=== PATIENT | male | born 1985 | race Caucasian/White ===

== ENCOUNTER 2016-12-27 12:51 | Emergency (ER) | payer OTHER ==
[~2016-12-27] VITALS: Ht 182.9 cm; Wt 132.2 kg
[2016-12-27 12:56] VITALS: Ht 182.9 cm; Wt 132.2 kg
[2016-12-27] MEDS ORDERED: MoRPHine SULFATE 4 MG/ML 1 ML CARP\\VIAL IV STA (13:07)
[2016-12-27] MEDS ORDERED: ONDANSETRON INJ 2 MG/ML 2 ML VIAL IV STA (13:07)
[2016-12-27 13:39] LABS: BASO % 0.2 %; BASO ABS # 0.01 K/uL (0-0.2); COMPLETE YES; EOS % 1.3 %; IG% 0.5 %; LYMPH % 23.8 %; LYMPH ABS # 1.46 K/uL (1.2-3.4); MEAN CELL VOLUME 90.2 fL (80-100); MEAN CORPUSCULAR HEMOGLOBIN 31.4 pg (25-34); MEAN CORPUSCULAR HGB CONC 34.8 g/dl (32-36); MEAN PLATELET VOLUME 10.6 fL (7.4-10.4); MONO % 11.7 %; NEUT % 62.5 %; PLATELET COUNT 182 K/uL (130-400); RED BLOOD COUNT 4.88 M/uL (4.7-6.1); WHITE BLOOD COUNT 6.13 K/uL (4.8-10.8)
[2016-12-27 14:07] LABS: ALT/SGPT 80 U/L (12-78); AST/SGOT 25 U/L (15-37); BLOOD UREA NITROGEN 12 mg/dl (7-18); CALCIUM 8.6 mg/dl (8.5-10.1); CARBON DIOXIDE 26 mmol/L (21-32); CHLORIDE 109 mmol/L (98-107); GLUCOSE 259 mg/dl (70-99); POTASSIUM 3.9 mmol/L (3.5-5.1); SODIUM 142 mmol/L (136-145)
[2016-12-27 14:09] LABS: ALKALINE PHOSPHATASE 81 U/L (45-117)
[2016-12-27 14:29] LABS: URINE APPEARANCE CLEAR (CLEAR); URINE BILIRUBIN NEG (NEG); URINE COLOR YELLOW; URINE NITRITE NEG (NEG); URINE PH 5.5 (4.5-7.5); URINE SPECIFIC GRAVITY 1.038 (1.000-1.030); UROBILINOGEN NEG (NEG)
[2016-12-27 14:39] LABS: MANUAL MICROSCOPIC REQUIRED? NO; REVIEW REQ? NO
--- NOTE | 2016-12-27 16:25 | DIAGNOSTIC IMAGING REPORT ---
ABDOMEN AND PELVIS CT WITH IV AND ORAL CONTRAST CT DOSE: 1560.09 mGy.cm HISTORY: Pain eval for spigelian hernia/obstruciton TECHNIQUE: Multiaxial CT images of the abdomen and pelvis were performed following the use of intravenous and oral contrast. COMPARISON STUDY: None. FINDINGS: Lung bases are clear. Fatty infiltration of liver. Spleen is unremarkable. Kidneys enhance uniformly. Pancreas is unremarkable. Bowel pattern overall is nonobstructive. Abdominal wall is intact. There is no evidence for hernia. There are no obstructive characteristics. IMPRESSION: Fatty infiltration of liver. Otherwise negative study. No evidence for obstruction or hernia. Electronically signed by: Clayton Ortega M.D. 12/27/2016 4:23 PM Dictated Date/Time: 12/27/2016 4:22 PM
[2016-12-27] MEDS ORDERED: OPTIRAY 320 IV PRN (16:30)
[2016-12-27 17:38] VITALS: BP 110/59; PULSE 81; TEMP 36.6; O2SAT 96
--- NOTE | 2016-12-27 18:28 | EMERGENCY ROOM VISIT NOTE ---
History Report prepared by Arlen: Janeth Rachel Under the Supervision of: Dr. Gen Willard M.D. First contact with patient: 12:58 Chief Complaint: ABDOMINAL PAIN Stated Complaint: UPPER LEFT SIDE ABDOMINAL PAIN Nursing Triage Summary: Pt reports LUQ pain that began 30 mins. "Feels like pop rocks. I get swelling in my abd. I have a pocket that is swollen and gets sore, but this is the first time it's been a constant pounding." Denies n/v/d. 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 The patient states that he was diagnosed with diastasis recti about 3 months ago; however, the symptoms that he is experiencing today are different and he has never had pain like this before. He reports sharp pain in his LUQ that "felt like a baby kicking me." He was just sitting in his car when his pain began. The patient states that the pain comes in spasms. He noticed that his LUQ appeared to be "puffed out." His pain is worsened with inspiration. The patient rates his pain as a 6/10 in severity. He had left sided back pain yesterday, but denies any current back pain. He has a personal history of kidney stones, but states that this does not feel like his previous stones. The patient denies fevers, nausea, vomiting, hematuria, and urinary symptoms. He denies any previous abdominal surgeries. He has had intermittent diarrhea and constipation and thinks he might have IBS. He notes intermittent melena and hematochezia for years. He has seen his PCP for this but has never had a colonoscopy before. He was told it could be hemorrhoids. 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 A total of 10 systems reviewed and were otherwise negative. Past Medical & Surgical Medical Problems: (1) Asthma (2) Diastasis recti (3) Kidney stones Family History Diabetes mellitus Social History Smoking Status: Never Smoker Marital Status: Housing Status: lives with significant other Current/Historical Medications No Active Prescriptions or Reported Meds Allergies Coded Allergies: Metoclopramide (Verified Adverse Reaction, Intermediate, " psychotic thoughts ", 12/27/16) Oxycodone (Verified Adverse Reaction, Intermediate, " Very High " not himself, 12/27/16) Physical Exam Vital Signs Date Time Temp Pulse Resp B/P (MAP) Pulse Ox O2 Delivery O2 Flow Rate FiO2 12/27/16 17:38 36.6 81 18 110/59 96 12/27/16 17:09 81 18 110/59 96 Room Air 12/27/16 14:59 80 18 107/57 96 Room Air 12/27/16 12:56 36.6 96 18 140/83 96 Room Air Physical Exam Constitutional: Vital signs reviewed. Eyes: Pupils are equal round reactive to light. Conjunctiva are noninjected. ENT: Pharynx is clear without erythema or exudate. Mucous membranes are moist. Neck supple without meningeal signs. Respiratory: Clear to auscultation bilaterally. Breath sounds are equal bilaterally. Cardiovascular: Regular rate and rhythm. No rubs or gallops. GI: Soft, supraumbilical and LUQ abdominal tenderness. Bowel sounds are present. Musculoskeletal: No peripheral edema. No lower extremity tenderness. Integumentary: No cyanosis. Neurological: The patient is awake and alert. No focal deficits. Psychiatric: Normal affect. Medical Decision & Procedures ER Provider Diagnostic Interpretation: Radiology results as stated below per my review and the radiologist's interpretation: ABDOMEN AND PELVIS CT WITH IV AND ORAL CONTRAST CT DOSE: 1560.09 mGy.cm HISTORY: Pain eval for spigelian hernia/obstruciton TECHNIQUE: Multiaxial CT images of the abdomen and pelvis were performed following the use of intravenous and oral contrast. COMPARISON STUDY: None. FINDINGS: Lung bases are clear. Fatty infiltration of liver. Spleen is unremarkable. Kidneys enhance uniformly. Pancreas is unremarkable. Bowel pattern overall is nonobstructive. Abdominal wall is intact. There is no evidence for hernia. There are no obstructive characteristics. IMPRESSION: Fatty infiltration of liver. Otherwise negative study. No evidence for obstruction or hernia. Electronically signed by: Clayton Ortega M.D. 12/27/2016 4:23 PM Dictated Date/Time: 12/27/2016 4:22 PM Laboratory Results 12/27/16 13:26 Red Blood Count 4.88, Mean Corpuscular Volume 90.2, Mean Corpuscular Hemoglobin 31.4, Mean Corpuscular Hemoglobin Concent 34.8, Mean Platelet Volume 10.6, Neutrophils (%) (Auto) 62.5, Lymphocytes (%) (Auto) 23.8, Monocytes (%) (Auto) 11.7, Eosinophils (%) (Auto) 1.3, Basophils (%) (Auto) 0.2, Neutrophils # (Auto ) 3.83, Lymphocytes # (Auto) 1.46, Monocytes # (Auto) 0.72, Eosinophils # (Auto ) 0.08, Basophils # (Auto) 0.01 12/27/16 13:26 Test 12/27/16 13:26 12/27/16 13:40 White Blood Count 6.13 K/uL (4.8-10.8) Red Blood Count 4.88 M/uL (4.7-6.1) Hemoglobin 15.3 g/dL (14.0-18.0) Hematocrit 44.0 % (42-52) Mean Corpuscular Volume 90.2 fL (80-100) Mean Corpuscular Hemoglobin 31.4 pg (25-34) Mean Corpuscular Hemoglobin Concent 34.8 g/dl (32-36) Platelet Count 182 K/uL (130-400) Mean Platelet Volume 10.6 fL (7.4-10.4) Neutrophils (%) (Auto) 62.5 % Lymphocytes (%) (Auto) 23.8 % Monocytes (%) (Auto) 11.7 % Eosinophils (%) (Auto) 1.3 % Basophils (%) (Auto) 0.2 % Neutrophils # (Auto) 3.83 K/uL (1.4-6.5) Lymphocytes # (Auto) 1.46 K/uL (1.2-3.4) Monocytes # (Auto) 0.72 K/uL (0.11-0.59) Eosinophils # (Auto) 0.08 K/uL (0-0.5) Basophils # (Auto) 0.01 K/uL (0-0.2) RDW Standard Deviation 42.7 fL (36.4-46.3) RDW Coefficient of Variation 13.0 % (11.5-14.5) Immature Granulocyte % (Auto) 0.5 % Immature Granulocyte # (Auto) 0.03 K/uL (0.00-0.02) Anion Gap 7.0 mmol/L (3-11) Est Creatinine Clear Calc Drug Dose 135.6 ml/min Estimated GFR () 102.4 Estimated GFR (Non- 88.4 BUN/Creatinine Ratio 11.0 (10-20) Calcium Level 8.6 mg/dl (8.5-10.1) Total Bilirubin 0.4 mg/dl (0.2-1) Direct Bilirubin < 0.1 mg/dl (0-0.2) Aspartate Amino Transf (AST/SGOT) 25 U/L (15-37) Alanine Aminotransferase (ALT/SGPT) 80 U/L (12-78) Alkaline Phosphatase 81 U/L (45-117) Total Protein 7.1 gm/dl (6.4-8.2) Albumin 3.6 gm/dl (3.4-5.0) Lipase 209 U/L (73-393) Urine Color YELLOW Urine Appearance CLEAR (CLEAR) Urine pH 5.5 (4.5-7.5) Urine Specific Lawn 1.038 (1.000-1.030) Urine Protein NEG (NEG) Urine Glucose (UA) 3+ (NEG) Urine Ketones TRACE (NEG) Urine Occult Blood NEG (NEG) Urine Nitrite NEG (NEG) Urine Bilirubin NEG (NEG) Urine Urobilinogen NEG (NEG) Urine Leukocyte Esterase NEG (NEG) Laboratory results as reviewed by me. Medications Administered Medications (Trade) Dose Ordered Sig/Florian Route Start Time Stop Time Status Last Admin Dose Admin Morphine Sulfate (MoRPHine SULFATE INJ) 4 mg ONE STAT IV 12/27/16 13:07 12/27/16 13:08 DC 12/27/16 13:41 4 MG Ondansetron HCl (Zofran Inj) 4 mg NOW STAT IV 12/27/16 13:07 12/27/16 13:08 DC 12/27/16 13:41 4 MG ED Course 1258: The patient was evaluated in room B10. A complete history and physical exam was performed. 1307: Zofran 4 mg IV, Morphine sulfate 4 mg IV 1436: I reassessed the patient. CT forgot to give him oral contrast, so they are bringing it now. 1637: I reassessed the patient at this time. He is feeling better and resting comfortably. I discussed the results and treatment plan with the patient. I answered all pertaining questions that he had. He expressed understanding and verbalized agreement. I advised him to follow-up with his PCP for a GI referral. The patient will be discharged home. Medical Decision This is a 31-year-old male who presents with abdominal pain and distention. Differential diagnosis includes spigelian hernia, obstruction, irritable bowel syndrome, inflammatory bowel disease, mass, pancreatitis, peptic ulcer disease. I did perform a limited focused review of portions of the patient's old chart on the electronic medical record. The patient has had no recent pertinent visits to this hospital. Medication Reconciliation: I attest that I have personally reviewed the patient' s current medication list. Blood Pressure Screening: Patient was found to have an elevated blood pressure and was referred to their primary doctor for recheck and further treatment. I did evaluate the patient as noted above. IV access was established. I did treat the patient with IV morphine and Zofran. I did order and personally review the patient's urinalysis as described above. I did order and review the patient's blood work as noted in the electronic medical record. white blood cell count is not elevated. LFTs are unremarkable. I did order a CT of the abdomen and pelvis. I did review the images myself as well as the radiology report as described above. There is no evidence of acute process. I did discuss the test results with the patient. He is feeling better. It is unclear what is causing his abdominal pain. He does have a history of intermittent constipation and diarrhea. I did recommend follow up with his doctor for possible GI referral. Impression Primary Impression: Upper abdominal pain Scribe Attestation The scribe's documentation has been prepared under my direct and personally reviewed by me in its entirety. I confirm that the note above accurately reflects all work, treatment, procedures, and medical decision making performed by me. Departure Information Dispostion Home / Self-Care Prescriptions No Active Prescriptions or Reported Meds Referrals No Doctor, Assigned (PCP) Forms Call Back Authorization, HOME CARE DOCUMENTATION FORM, IMPORTANT VISIT INFORMATION Patient Instructions ED Abdominal Pain Unkn Cause Male, My [facility] Additional Instructions You have been examined and treated today on an emergency basis only. This is not a substitute for, or an effort to provide, complete comprehensive medical care. It is impossible to recognize and treat all injuries or illnesses in a single emergency department visit. It is therefore important that you follow up closely with your physician. Call as soon as possible for an appointment. Return for worsening symptoms or if you develop fever, vomiting, black or tarry stools or any other concerning symptoms.
== END 2016-12-27 17:38 | disposition home or self-care (01) ==
LOC: C.EDB 12:55
DX: R10.12 Left upper quadrant pain (principal); R19.7 Diarrhea, unspecified; J45.909 Unspecified asthma, uncomplicated; Z87.442 Personal history of urinary calculi; Z83.3 Family history of diabetes mellitus

== ENCOUNTER 2017-01-31 14:49 | Emergency (ER) | payer OTHER ==
[~2017-01-31] VITALS: Ht 186.7 cm; Wt 130.8 kg
[2017-01-31 14:52] VITALS: TEMP 36.2; Ht 186.7 cm; Wt 130.8 kg
[2017-01-31] MEDS ORDERED: IPRA1AER2 INH (15:43)
[2017-01-31] MEDS ORDERED: ONDANSETRON INJ 2 MG/ML 2 ML VIAL IV STA (15:49)
[2017-01-31] MEDS ORDERED: SODIUM CHLORIDE 0.9% 1000ML 1,000 ML IV STA ×2 (15:49→16:40)
[2017-01-31] MEDS ORDERED: SODIUM CHLORIDE 0.9% 1000ML 1,000 ML IV ONE (15:49)
[2017-01-31 16:12] LABS: BASO % 0.1 %; BASO ABS # 0.01 K/uL (0-0.2); COMPLETE YES; EOS % 0.3 %; HEMATOCRIT 49.1 % (42-52); IG% 0.6 %; LYMPH ABS # 1.48 K/uL (1.2-3.4); MEAN CELL VOLUME 89.3 fL (80-100); MEAN CORPUSCULAR HEMOGLOBIN 30.9 pg (25-34); MEAN CORPUSCULAR HGB CONC 34.6 g/dl (32-36); MEAN PLATELET VOLUME 10.6 fL (7.4-10.4); MONO % 5.8 %; NEUT % 81.2 %; PLATELET COUNT 201 K/uL (130-400); WHITE BLOOD COUNT 12.37 K/uL (4.8-10.8)
--- NOTE | 2017-01-31 16:26 | EMERGENCY ROOM VISIT NOTE ---
History Report prepared by Arlen: Mahendra Lan Under the Supervision of: Dr. Lei Rolle M.D. First contact with patient: 15:37 Chief Complaint: DIZZY Stated Complaint: DIZZY Nursing Triage Summary: Donated plasma this AM. Had bloodwork done at 130pm and then passed out for 20sec then woke up vomiting. Became "violently ill" and dizzy. History of Present Illness The patient is a 31 year old male who presents to the Emergency Room with complaints of constant dizziness occurring around 1330 today after giving plasma and doing lab work. 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 The patient states that after giving lab work he passed out for more than 20 seconds, and then he woke up and was nauseous and vomited. He states that he was then given juice and food, and then even afterwards he started sweating, getting dizzy, and he vomited again. The patient denies any chest pain or shortness of breath. Source of History: patient Onset: global Position: other (global) Quality: other (dizziness) Timing: constant Associated Symptoms: + LOC, + nausea, + vomiting, No chest pain, No SOB Review of Systems See HPI for pertinent positives & negatives. A total of 10 systems reviewed and were otherwise negative. Past Medical & Surgical Medical Problems: (1) Asthma (2) Diastasis recti (3) Kidney stones Old medical records were reviewed. Nurse's notes were reviewed and I agree with. Family History Diabetes mellitus Social History Smoking Status: Never Smoker Drug Use: none Marital Status: Housing Status: lives with significant other Current/Historical Medications Scheduled PRN Ipratropium-Albuterol (Combivent Respimat), 2 PUFFS INH QID PRN for Shortness of Breath Allergies Coded Allergies: Latex (Verified Allergy, Intermediate, Skin irritation - rash and burning sensation, 01/31/17) Metoclopramide (Verified Adverse Reaction, Intermediate, " psychotic thoughts ", 12/27/16) Oxycodone (Verified Adverse Reaction, Intermediate, " Very High " not himself, 12/27/16) Physical Exam Vital Signs Date Time Temp Pulse Resp B/P (MAP) Pulse Ox O2 Delivery O2 Flow Rate FiO2 01/31/17 18:25 88 16 117/71 97 01/31/17 16:31 60 16 108/66 95 01/31/17 14:52 36.2 105 20 101/71 92 Room Air Physical Exam General: Mildly ill appearing young male complaining of dizziness and shortness of breath. HEENT: Normal cephalic atraumatic. Pupils are equal round and reactive to light. Sclerae anicteric. Extraocular movements are intact. Oropharynx is pink with moist mucous membranes. No swelling of the mouth lips or tongue. Neck: Supple with a midline trachea. No meningeal signs or stiffness, no JVD or bruits. No Stridor. Chest: Clear to auscultation bilaterally. No wheezes or rhonchi. No increased work of breathing. Heart: regular rate and rhythm. Abdomen: Soft nontender, nondistended without rebound guarding or rigidity. Extremities: No cyanosis clubbing or edema. No calf tenderness or assymetry Spine/Back. Non tender to palpation. No CVA tenderness Skin: Good turgor without rashes. Neurologic exam: Cranial nerves two through 12 are intact. Motor and sensation are intact and symmetrical throughout. Medical Decision & Procedures Laboratory Results 01/31/17 16:00 Red Blood Count 5.50, Mean Corpuscular Volume 89.3, Mean Corpuscular Hemoglobin 30.9, Mean Corpuscular Hemoglobin Concent 34.6, Mean Platelet Volume 10.6, Neutrophils (%) (Auto) 81.2, Lymphocytes (%) (Auto) 12.0, Monocytes (%) (Auto) 5.8, Eosinophils (%) (Auto) 0.3, Basophils (%) (Auto) 0.1, Neutrophils # (Auto) 10.05, Lymphocytes # (Auto) 1.48, Monocytes # (Auto) 0.72, Eosinophils # (Auto) 0.04, Basophils # (Auto) 0.01 01/31/17 16:00 Test 01/31/17 16:00 White Blood Count 12.37 K/uL (4.8-10.8) Red Blood Count 5.50 M/uL (4.7-6.1) Hemoglobin 17.0 g/dL (14.0-18.0) Hematocrit 49.1 % (42-52) Mean Corpuscular Volume 89.3 fL (80-100) Mean Corpuscular Hemoglobin 30.9 pg (25-34) Mean Corpuscular Hemoglobin Concent 34.6 g/dl (32-36) Platelet Count 201 K/uL (130-400) Mean Platelet Volume 10.6 fL (7.4-10.4) Neutrophils (%) (Auto) 81.2 % Lymphocytes (%) (Auto) 12.0 % Monocytes (%) (Auto) 5.8 % Eosinophils (%) (Auto) 0.3 % Basophils (%) (Auto) 0.1 % Neutrophils # (Auto) 10.05 K/uL (1.4-6.5) Lymphocytes # (Auto) 1.48 K/uL (1.2-3.4) Monocytes # (Auto) 0.72 K/uL (0.11-0.59) Eosinophils # (Auto) 0.04 K/uL (0-0.5) Basophils # (Auto) 0.01 K/uL (0-0.2) RDW Standard Deviation 41.1 fL (36.4-46.3) RDW Coefficient of Variation 12.6 % (11.5-14.5) Immature Granulocyte % (Auto) 0.6 % Immature Granulocyte # (Auto) 0.07 K/uL (0.00-0.02) Anion Gap 7.0 mmol/L (3-11) Est Creatinine Clear Calc Drug Dose 159.4 ml/min Estimated GFR () 122.3 Estimated GFR (Non- 105.5 BUN/Creatinine Ratio 15.6 (10-20) Calcium Level 8.6 mg/dl (8.5-10.1) Total Bilirubin 0.6 mg/dl (0.2-1) Direct Bilirubin 0.1 mg/dl (0-0.2) Aspartate Amino Transf (AST/SGOT) 21 U/L (15-37) Alanine Aminotransferase (ALT/SGPT) 59 U/L (12-78) Alkaline Phosphatase 81 U/L (45-117) Total Protein 6.5 gm/dl (6.4-8.2) Albumin 3.3 gm/dl (3.4-5.0) Lipase 163 U/L (73-393) Laboratory studies as stated above per my review. Medications Administered Medications (Trade) Dose Ordered Sig/Florian Route Start Time Stop Time Status Last Admin Dose Admin Sodium Chloride 1,000 ml @ 999 mls/hr Q1H1M STAT IV 7/31/17 15:49 01/31/17 16:49 DC 01/31/17 16:01 999 MLS/HR Sodium Chloride 1,000 ml @ 200 mls/hr Q5H ONCE IV 01/31/17 15:49 01/31/17 20:48 01/31/17 16:31 200 MLS/HR Ondansetron HCl (Zofran Inj) 4 mg NOW STAT IV 01/31/17 15:49 01/31/17 15:50 DC 01/31/17 16:00 4 MG Sodium Chloride 1,000 ml @ 999 mls/hr Q1H1M STAT IV 01/31/17 16:40 01/31/17 17:40 DC 01/31/17 16:46 999 MLS/HR ECG Indication: other (dizziness) Rate (beats per minute): 71 Rhythm: normal sinus Findings: no acute ischemic change, no ectopy ED Course 1537: Past medical records reviewed. The patient was evaluated in room A9, and a complete history and physical examination were performed. 1549: Zofran Inj 4mg IV, Sodium Chloride 1000 ml @ 200 mls/hr IV, Sodium Chloride 1000 ml @ 999 mls/hr IV 1635: I reevaluated the patient, and he was doing well. 1640: Sodium Chloride 1000 ml @ 999 mls/hr IV 1746: I reevaluated the patient, and he was feeling much better. He looked better, so I am going to give him food, and if he does okay, then he will go home. 1806: Upon reevaluation, the patient is feeling much better. He was able to ambulate without any problems. The patient ate dinner. I discussed the results and treatment plan with him. He verbalized agreement of the treatment plan. The patient was discharged home. Medical Decision Differentials include, but are not limited to; dehydration, vertigo, vasovagal episode, arrhythmia, and intracranial processes. This patient comes in as described above. He was placed in room A9. He is here for treatment and evaluation of dizziness. He did not eat anything all night and then gave plasma and then also had blood work drawn. He has given plasma before without problems. He has a normal neurologic exam. No chest pain or shortness. IV access was established. EKG shows no acute ischemic changes or ectopy seen. He has no acute electrolyte or metabolic abnormalities. He was hydrated 2 L IV normal saline bolus and he is here feeling a lot better. He was also for Zofran. He is asymptomatic acting normal. He ate food. He was able family without dizzines or symptoms and again has a normal neurologic exam. I think this was from the prolonged fasting as well as blood work. I encouraged him follow-up with his regular doctor in 1- 2 days for recheck and return to ER in the meantime if he has worsening of symptoms, numbness or weakness, chest pain, shortness of breath, any new problems concerns. He was happy with the plan and discharged Medication Reconcilliation Current Medication List: was personally reviewed by me Blood Pressure Screening Patient's blood pressure: Normal blood pressure Impression Primary Impression: Dizziness Scribe Attestation The scribe's documentation has been prepared under my direction and personally reviewed by me in its entirety. I confirm that the note above accurately reflects all work, treatment, procedures, and medical decision making performed by me. Departure Information Dispostion Home / Self-Care Referrals No Doctor, Assigned (PCP) Forms HOME CARE DOCUMENTATION FORM, IMPORTANT VISIT INFORMATION Patient Instructions My [facility] Additional Instructions Rest. Drink plenty of fluids. Return if: Increasing pain, worsening of symptoms, fever or chills or concerns. Follow-up with your doctor in 1-2 days for recheck
[2017-01-31 16:27] LABS: BUN/CREATININE RATIO 15.6 (10-20); CALCIUM 8.6 mg/dl (8.5-10.1); CREATININE 0.95 mg/dl (0.60-1.40)
[2017-01-31 18:25] VITALS: BP 117/71; PULSE 88; O2SAT 97
== END 2017-01-31 18:26 | disposition home or self-care (01) ==
LOC: C.EDB 14:50 → C.EDA 18:26
DX: R42 Dizziness and giddiness (principal); J45.909 Unspecified asthma, uncomplicated; Z83.3 Family history of diabetes mellitus

== ENCOUNTER → 2017-03-17 | Outpatient (CLI) | payer OTHER ==
[~2017-03-17] MED LIST: GADAVIST IV PRN; IPRA1AER2 INH
--- NOTE | 2017-03-17 15:23 | DIAGNOSTIC IMAGING REPORT ---
BRAIN COMBO CLINICAL HISTORY: LOSS OF Memory, slurred SPEECH, ACUTE CONFUSION mental status change COMPARISON STUDY: No previous studies for comparison. TECHNIQUE: Utilizing a 1.5 Isis magnet and dedicated coil, multiplanar, multiecho imaging of the brain was performed pre and postcontrast administration. IV administration of 12.6 mL of Gadavist contrast was uneventful. FINDINGS: Diffusion-weighted images show no evidence for an acute ischemic insult. Signal characteristics of the cerebellar as well as cerebral hemispheres are unremarkable. No significant abnormal postcontrast enhancement. Ventricular system is midline. Sella and parasellar regions are unremarkable. Internal artery canals are symmetric. IMPRESSION: Negative study The above report was generated using voice recognition software. It may contain grammatical, syntax or spelling errors. Electronically signed by: Clayton Ortega M.D. 03/17/2017 3:21 PM Dictated Date/Time: 03/17/2017 3:19 PM
== END | disposition home or self-care (01) ==
LOC: C.MRI 13:35
PROVIDERS: ATTEND Physician Assistant
DX: R41.0 Disorientation, unspecified (principal); R47.81 Slurred speech; R41.3 Other amnesia; R41.82 Altered mental status, unspecified

== ENCOUNTER → 2017-04-06 | Outpatient (CLI) | payer OTHER ==
[~2017-04-06] MED LIST changes: -GADAVIST IV PRN
--- NOTE | 2017-04-11 11:25 | EEG Procedure Note ---
EEG Procedure Note Date of Service Apr 06, 2017. Start / End Times Start Time: 8:56 AM End Time: 9:16 AM Referring Physician KONG Arce History This is a 31-year-old male with episodes of slurred speech and memory issues. EEG for further evaluation of possible seizure etiology. Home Medication List Scheduled PRN Ipratropium-Albuterol (Combivent Respimat), 2 PUFFS INH QID PRN for Shortness of Breath Description This is a 21 electrode EEG with a single channel dedicated to limited EKG. The electrodes were placed in accordance with the International 10-20 system. At the start of the recording the patient was in an awake state. Background was well organized and composed of symmetric mixed alpha and beta frequencies. There was a symmetric well-formed moderate amplitude 10-11Hz posterior dominant rhythm that was reactive to eye opening and closure. Hyperventilation was not done. Intermittent photic stimulation at various frequencies produced no abnormalities. Drowsiness was indicated by loss of muscle artifact, slowing of the background rhythm, and vertex waves. There was no stage II sleep transients. Interpretation This is a normal awake and drowsy routine EEG. There was no electrographic seizures or epileptiform discharges. Clinical Correlation A normal EEG does not rule out epilepsy if there is a strong clinical suspicion.
== END ==
LOC: C.NEUR 08:45
PROVIDERS: ATTEND Physician Assistant
DX: R41.0 Disorientation, unspecified (principal); R47.81 Slurred speech; R41.3 Other amnesia